=== PATIENT | male | born 1990 | race Caucasian/White ===

== ENCOUNTER 2020-02-23 09:03 | Outpatient (NON) | payer BC, SELFPAY ==
[2020-02-23 21:15] LABS: SARS-CoV-2 RNA PCR Negative
== END 2020-02-23 09:04 ==
PROVIDERS: PCP Family Medicine; Visit Provider Nurse Practitioner Family
DX: R09.89 Other specified symptoms and signs involving the circulatory and respiratory systems (principal); Z20.828 Contact with and (suspected) exposure to other viral communicable diseases
CPT/HCPCS: 87635; C9803; U0003

== ENCOUNTER 2023-04-09 09:55 | Outpatient (CLI) | payer BC, SELFPAY ==
--- NOTE | ~2023-04-09 | XR_ITS ---
EXAMINATION: XR abdomen/kub 1V INDICATION: Constipation TECHNIQUE: Supine views of the abdomen were obtained on 2 radiographs. COMPARISON: None FINDINGS: There is a moderate volume of stool in the proximal colon. There are no dilated loops of mehnaz wel. The bowel gas pattern is normal. Phleboliths are noted in the pelvis. The visualized osseous str uctures are unremarkable. IMPRESSION: 1. Moderate volume of stool in the proximal colon. Reviewed, dictated and finalized at location L. 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
--- NOTE | ~2023-04-09 | US_ITS ---
Abdominal Sonogram: Real-time sonographic imaging of the abdomen was performed. Clinical History: Constipation Findings: The liver appears mildly echogenic, with no evidence of mass lesion or bile duct dilatatio n. Main portal vein demonstrates normal direction of flow. The spleen is normal in size without evide nce of focal lesion. The gallbladder is well distended, and appears normal with no evidence of galls tone or wall thickening. The common bile duct measures 3 mm. The pancreas, aorta, and IVC are largel y obscured by bowel gas shadowing. The right kidney measures 11.4 cm in length and the left kidney m easures 10.8 cm. There is no hydronephrosis or renal calculus. Impression: Diffuse fatty infiltration of liver. Reviewed, dictated and finalized at location M. RVISING ARCHITECT Impression: Diffuse fatty infiltration of liver.
== END 2023-04-09 09:56 ==
LOC: MICIMG 09:56
PROVIDERS: PCP Physician Assistant; Visit Provider Physician Assistant
DX: K59.00 Constipation, unspecified (principal); R10.9 Unspecified abdominal pain; K76.0 Fatty (change of) liver, not elsewhere classified
CPT/HCPCS: 74018; 76700